=== PATIENT | male | born 1965 | race Caucasian/White ===

== ENCOUNTER 2021-06-16 15:45 | Emergency (ER) | payer OTHER ==
[~2021-06-16] VITALS: Ht 170.2 cm; Wt 118.2 kg
[2021-06-16] MEDS ORDERED: FLEXERIL5 M1 PO (15:59)
[2021-06-16] MEDS ORDERED: MOTRIN400 MG/TAB PO (15:59)
[2021-06-16] MEDS ORDERED: LISINOPRIL20 MG PO (16:34)
[2021-06-16] MEDS ORDERED: ASPIRIN81 MG PO (16:35)
[2021-06-16] MEDS ORDERED: LIPITOR40 M1 PO (16:36)
[2021-06-16] MEDS ORDERED: LASIX20 MG PO (16:38)
[2021-06-16] MEDS ORDERED: METFORMIN500 M2 PO (16:38)
[2021-06-16] MEDS ORDERED: HUMULIN 70/30 SC (16:41)
[2021-06-16 17:19] VITALS: BP 159/94
== END 2021-06-16 17:10 | disposition home or self-care (01) | DRG 552 ==
LOC: ED 15:45
DX: M43.6 Torticollis (principal); E11.9 Type 2 diabetes mellitus without complications; I10 Essential (primary) hypertension; E78.00 Pure hypercholesterolemia, unspecified